=== PATIENT | male | born 1955 | race Asian ===

== ENCOUNTER 2023-08-06 12:57 | Emergency (ER) | payer OTHER ==
[~2023-08-06] VITALS: Ht 167.6 cm; Wt 64.0 kg
[2023-08-06 12:59] VITALS: TEMP 97.9; O2SAT 99
[2023-08-06 15:28] VITALS: BP 163/86; PULSE 86; RESP 18
[2023-08-06] MEDS: IBUPROFEN 600MG TABLET PO ONE (15:28)
[2023-08-06] MEDS: TETANUS, DIPHTHERIA, PERTUSSIS VAC/PF 0.5ML (>10YR OLD) IM ONE (15:28)
[2023-08-06] MEDS ORDERED: NAPR500T7 MT (16:46)
== END 2023-08-06 16:56 | disposition home or self-care (01) ==
LOC: ER 13:37
DX: S22.31XA Fracture of one rib, right side, initial encounter for closed fracture (principal); W18.39XA Other fall on same level, initial encounter; Y93.89 Activity, other specified; Y92.89 Other specified places as the place of occurrence of the external cause; Y99.8 Other external cause status
CPT/HCPCS: 71101; 72170; 73590; 73610; 90471; 90715; 99284